=== PATIENT | male | born 1975 | race Caucasian/White ===

== ENCOUNTER 2022-12-21 13:16 | Outpatient (CLI) | payer BC | END 2022-12-21 13:17 | disposition home or self-care (01) | LOC: SCSMRI 13:16 | PROVIDERS: ATTEND Family Medicine | DX: H93.11 Tinnitus, right ear (principal); I67.82 Cerebral ischemia; Z86.73 Personal history of transient ischemic attack (TIA), and cerebral infarction without residual deficits | CPT/HCPCS: 70551 ==